=== PATIENT | male | born 1975 | race Caucasian/White ===

== ENCOUNTER → 2018-03-11 | Outpatient (CLI) | payer OTHER ==
--- NOTE | 2018-03-11 10:04 | MR ---
EXAMINATION TYPE: MR cervical spine wo con DATE OF EXAM: 03/11/2018 COMPARISON: 02/16/2016 HISTORY: Spinal stenosis, cervical region TECHNIQUE: Multiplanar, multisequence images of the cervical spine were acquired. FINDINGS: There is very slight retrolisthesis of C6 on C7 and straightening of the usual cervical lordosis. Mul tilevel disc desiccation is seen. Bone marrow signal is unremarkable other than degenerative endplate changes. Spinal cord signal is within normal limits throughout. Visualized posterior fossa is grossl y unremarkable. C2-C3: There is a small central disc osteophyte complex without spinal canal stenosis. Minimal right facet arthropathy creates minimal right neural foraminal narrowing. Left neural foramen is patent. C3-C4: There is uncovertebral hypertrophy and facet arthropathy creating mild bilateral neural forami nal narrowing. Small broad-based disc osteophyte complex mildly narrows the spinal canal and ventral subarachnoid space. C4-C5: Right greater than left uncovertebral hypertrophy and facet arthropathy moderately narrow the right neural foramen. Left neural foramen is patent. Right eccentric broad-based disc bulge rates mil d spinal canal stenosis. No focality. C5-C6: There is a left paracentral disc herniation extending into the left lateral recess and left ne ural foramen severely narrowing the left neuroforamen and creating mild to moderate overall spinal ca nal stenosis. Right mild neural foraminal narrowing is also appreciated from uncovertebral hypertroph y and facet arthropathy. C6-C7: There is a left paracentral disc herniation effacing the ventral subarachnoid space in combina tion with mild ligamentum flavum buckling creating moderate spinal canal stenosis. No alteration in t he spinal cord signal at this level. This finding in combination with uncovertebral hypertrophy and f acet arthropathy creates moderate bilateral neural foraminal narrowing. C7-T1: No evidence for degenerative disc disease. No disc bulge/herniation or protrusion. No Canal stenosis. Foramina are patent bilaterally. IMPRESSION: 1. Left paracentral disc herniation extending into the left neural foramen creating severe left neura l foraminal narrowing and mild to moderate spinal canal stenosis. 2. Left paracentral disc herniation at C6-C7 that in combination with degenerative changes and ligame ntum flavum buckling create moderate spinal canal stenosis and moderate bilateral neural foraminal na rrowing. 3. Mild multilevel degenerative changes of the cervical spine resulting in variable degrees of neural foraminal narrowing as described above. 4. Very slight retrolisthesis of C6 on C7 that may be degenerative in nature and straightening of usu al cervical lordosis that may relate to muscular sprain/spasm or patient positioning.
== END | disposition home or self-care (01) ==
LOC: RADMRIMAIN 06:09
PROVIDERS: ATTEND Family Medicine
DX: M48.02 Spinal stenosis, cervical region (principal); M43.12 Spondylolisthesis, cervical region; M50.222 Other cervical disc displacement at C5-C6 level; M99.71 Connective tissue and disc stenosis of intervertebral foramina of cervical region; M47.812 Spondylosis without myelopathy or radiculopathy, cervical region; M53.82 Other specified dorsopathies, cervical region
CPT/HCPCS: 72141

== ENCOUNTER → 2020-04-19 | Outpatient (CLI) | payer OTHER ==
--- NOTE | 2020-04-21 15:35 | MR ---
EXAMINATION TYPE: MR foot RT wo con DATE OF EXAM: 04/19/2020 COMPARISON: NONE HISTORY: 44-year-old male M66.361, nontraumatic rupture of right Achilles tendon, M25.571 right ankle pain after injury 2 months ago. TECHNIQUE: Multiplanar, multisequence images of the right foot were obtained without IV contrast. FINDINGS: There is some motion degradation of the exam. Moderate tibiotalar joint effusion. Mild thinning of articular cartilage along the anterior aspect of the tibiotalar joint. No osteochondral lesion is seen. The Achilles tendon remains intact. Origin of the plantar fascia is intact. Corticated bone fragments below the medial malleolus measuring up to 1.2 cm. There is some mild marro w edema at the inferior aspect of the medial malleolus and also within the corticated fragments. The deep posterior deltoid ligament appears intact though some of the anterior superficial fibers luciana w increased signal. Medial sided soft tissue swelling with tenosynovial fluid along the inframalleolar posterior tibial t endon and flexor digitorum longus. Moderate tenosynovial fluid along the plantar aspect of the flexor hallucis longus at the level of the knot of Noble. Moderate tenosynovial fluid along the lateral peroneal tendons. No retracted tear. ATFL is not clearly seen and has fluid signal in this region. Tear is difficult to exclude. Prominent fluid along the PTFL could represent partial tear. This excessive motion artifact for adequate asses sment of the CFL. The syndesmosis appears intact with mild increased signal along the anterior inferior tibiofibular li gament, for example, coronal series 601 image 38. This could represent a low-grade sprain. Anterior extensor tendons appear grossly intact. Moderate degenerative change at the first MTP joint. Lisfranc ligament appears intact. IMPRESSION: 1. A couple bone fragments below the medial malleolus measuring up to 1.2 cm with some edematous squires ge in this region. 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 There is suggestion of some partial te aring along the anterior superficial deltoid ligament fibers. 2. Motion degrades the exam. The ATFL is not adequately seen and may be torn. Clinically correlate. 3. Tenosynovitis along the medial flexor tendons including at the knot of Noble along the plantar asp ect of the foot. Additional tenosynovitis involving the lateral peroneal tendons. 4. Moderate degenerative change at the first MTP joint. 5. The Achilles tendon is intact.
== END | disposition home or self-care (01) ==
LOC: RADMRIMAIN 14:39
PROVIDERS: ATTEND Physician Assistant Medical
DX: M65.871 Other synovitis and tenosynovitis, right ankle and foot (principal); M19.071 Primary osteoarthritis, right ankle and foot

== ENCOUNTER → 2024-02-23 | Outpatient (CLI) | payer OTHER ==
--- NOTE | 2024-02-28 09:01 | CT ---
EXAMINATION TYPE: CT abdomen pelvis w con CT DLP: 982 mGycm, Automated exposure control for dose reduction was used. DATE OF EXAM: 02/23/2024 6:48 PM COMPARISON: None. CLINICAL INDICATION:Male, 48 years old with history of R10.9 UNSPECIFIED ABDOMINAL PAIN R19.00 INTRA- ABD; left inguinal burning pain x4 weeks TECHNIQUE: Axial CT of the abdomen and pelvis. Sagittal and coronal reformats were created on a [employer] workstation. Contrast used:100 mL of Isovue 300 with IV Contrast, (none if empty) Oral contrast used: with Oral Contrast (none if empty) FINDINGS: LOWER CHEST: Mild dependent subsegmental atelectatic changes. Heart appears borderline enlarged. ABDOMEN LIVER: Unremarkable GALLBLADDER AND BILE DUCTS: Unremarkable gallbladder. No biliary ductal dilatation. PANCREAS: Unremarkable. SPLEEN: Unremarkable. ADRENAL GLANDS: Unremarkable. KIDNEYS AND URETERS: Kidneys enhance symmetrically. No evidence of hydronephrosis or visible renal ca lculus. The ureters are unremarkable. PELVIS BLADDER: Mildly distended, otherwise unremarkable. REPRODUCTIVE: Unremarkable prostate. ABDOMEN & PELVIS STOMACH AND BOWEL: Contrast traverses the stomach and throughout the small bowel, as well as through the majority of the colon, to the mid to distal descending region. No evidence of obstruction. The ap pendix appears normal. The distal colon shows several diverticula, without clear evidence of inflamma tion to suggest acute diverticulitis. PERITONEUM/RETROPERITONEUM: No evidence of pneumoperitoneum or free fluid. VASCULATURE: Aorta and major branches are grossly unremarkable. No AAA. Portal veins are enhancing. Splenic vein is patent. SMV appears patent. LYMPH NODES: No enlarged nodes by CT size criteria. SOFT TISSUE/ABDOMINAL WALL: Partially seen flame shaped subcutaneous density in the left breast sugge stive of gynecomastia. No acute soft tissue abnormality is seen. MUSCULOSKELETAL: No acute osseous abnormalities. Mild/moderate disc degeneration changes are present throughout the thoracolumbar spine. Most significantly, there are moderate canal and neural foramina l stenoses at L5-S1. IMPRESSION: 1. No definite acute abnormality in the abdomen or pelvis. 2. Colonic diverticula are present, without convincing evidence of acute diverticulitis. 3. No evidence of bowel obstruction, free fluid, or free air. Normal appendix. 4. Distended bladder. 5. Other chronic and likely incidental findings, as described above.
== END | disposition home or self-care (01) ==
LOC: RADCTMAIN 16:44
PROVIDERS: ATTEND Family Medicine
DX: K57.30 Diverticulosis of large intestine without perforation or abscess without bleeding (principal); N32.89 Other specified disorders of bladder; R19.00 Intra-abdominal and pelvic swelling, mass and lump, unspecified site
CPT/HCPCS: 74177; Q9967